=== PATIENT | male | born 1965 ===

== ENCOUNTER 2021-06-11 08:11 | Outpatient (CLI) | payer SELFPAY ==
[2021-06-12 18:38] LABS: Quest SARS-CoV-2 RNA NOT DETECTED (NOT DETECTED)
== END 2021-06-11 08:12 | disposition home or self-care (01) ==
PROVIDERS: Visit Provider Internal Medicine Cardiovascular Disease
DX: Z20.822 Contact with and (suspected) exposure to COVID-19 (principal)
CPT/HCPCS: 87635